=== PATIENT | female | born 1980 | race Caucasian/White ===

== ENCOUNTER 2019-12-26 03:46 | Emergency (ER) | payer SELFPAY ==
[2019-12-26] MEDS ORDERED: Boostrix 0.5 ML VIAL ONE ×2 (04:48→04:56)
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
== END 2019-12-26 05:05 ==
LOC: ERS 03:46
DX: S01.01XA Laceration without foreign body of scalp, initial encounter (principal); Y04.0XXA Assault by unarmed brawl or fight, initial encounter
CPT/HCPCS: 70450; 70486; 72125; 90715